=== PATIENT | male | born 1995 | race Caucasian/White ===

== ENCOUNTER 2017-08-31 18:59 | Emergency (ER) | payer MEDICARE, SELFPAY ==
[2017-08-31 19:14] VITALS: BP 138/89; PULSE 130; RESP 16; TEMP 36.6; O2SAT 100; BMI 18.3
--- NOTE | 2017-08-31 20:22 | CT_ITS ---
CT chest w con HISTORY: Abscess in the upper right side of the chest, pain, swelling, chest pain ITS.REASON: abscess to chest ORDERING PHYSICIAN: Earnest Epps MD PATIENT AGE: 22 years TECHNIQUE: Axial images obtained following the administration of 75 mL of Isovue 370 . Sagittal, and coronal reformatted images are also generated and reviewed. COMPARISON: None FINDINGS: No mediastinal or hilar mass or adenopathy. Normal heart size without evidence of pericardial effusion. No central pulmonary embolus or aortic aneurysm. There is a lobular 1.3 x 0.9 cm nodule in the right lower lobe superiorly. This appears to contain calcium on the reformatted images. A calcified 5 mm nodule present in the right lower lobe posteriorly. No lobar consolidation or collapse. No effusions or infiltrates. There is a 4 x 2.4 x 3 cm fluid collection in the right supraclavicular region. This is without an enhancing rim or internal gas measuring near water density. Unremarkable bony structures. No acute finding in the upper abdomen. 2.5 x 2.3 cm enlarged right axillary lymph node with smaller adjacent lymph nodes. IMPRESSION: 1. 4 cm oval fluid collection in the right supraclavicular region. No enhancing rim or internal gas that would indicate an abscess. Please correlate with clinical findings. 2. Enlarged right axillary lymph node. The node could be reactive. Neoplastic involvement however is not excluded and follow-up is recommended. 3. There are 2 right lower lobe nodules both of which contain calcium consistent with old granulomatous disease
[2017-08-31 20:36] LABS: Basophils % 0.4 % (0.1-2.0); Eosinophils # 0.1 K/mm3 (0.0-0.4); Eosinophils % 1.1 % (0.1-12.0); Hematocrit 41.4 % (42.0-52.0); Hemoglobin 13.5 g/dL (14.1-18.0); Lymphocytes # 1.7 K/mm3 (0.7-4.5); Lymphocytes % 16.8 K/mm3 (10-50); Mean Corpuscular HGB Conc 32.7 g/dL (31.8-35.4); Mean Corpuscular Hemoglobin 29.2 pg (27.0-31.2); Mean Corpuscular Volume 89.2 fl (80-94); Monocytes # 0.5 K/mm3 (0.1-1.0); Monocytes % 5.2 % (1.7-9.3); Neutrophils # 7.8 K/mm3 (1.8-7.8); Neutrophils % 76.6 % (37.0-80.0); Platelet Count 355 K/mm3 (142-424); Red Blood Count 4.64 M/mm3 (4.60-6.20); Red Cell Distribution Width 11.8 % (11.5-17.5); White Blood Count 10.1 K/mm3 (4.8-10.8)
[2017-08-31 20:52] LABS: Alanine Aminotransferase 20 U/L (12-78); Albumin Level 3.4 gm/dL (3.4-5.0); Albumin/Globulin Ratio 0.7 (1.1-1.8); Alkaline Phosphatase 78 U/L (46-116); Anion Gap 11.9 mEq/L (5-15); Aspartate Amino Transferase 10 U/L (15-37); Bilirubin,Total 0.2 mg/dL (0.2-1.0); Blood Urea Nitrogen 9 mg/dL (7-18); Calcium 9.1 mg/dL (8.5-10.1); Carbon Dioxide 27 mmol/L (21.0-32.0); Chloride 104 mmol/L (98-107); Creatinine Clearance Estimated 100 mL/min (0-300); Estimated Glomerular Filt Rate 93 ml/min (>60); GFR (African American) 113 ML/MIN (>60); Globulin 4.6 gm/dl (1.3-3.2); Glucose 79 mg/dL (74-106); Potassium 3.9 mmoL/L (3.5-5.1); Sodium 139 mmol/L (136-145)
[2017-08-31 21:18] LABS: Erythrocyte Sedimentation Rate 61 mm/hr (0-15)
--- NOTE | 2017-08-31 21:24 | HMH.EDSKAF ---
ED Disposition Clinical Impression: Abscess of skin or subcutaneous tissue Qualifiers: Site of cutaneous abscess: trunk Site of cutaneous abscess of trunk: chest wall Qualified Code(s): L02.213 - Cutaneous abscess of chest wall Disposition: Home, Self-Care Condition on Discharge: Good Instructions: DI for Skin Abscess Prescriptions: cephALEXin [Keflex 500mg Cap] 500 mg PO Q6H #30 cap Sulfamethoxazole/Trimethoprim [Bactrim DS tablet] 1 each PO BID #20 tab - Critical Care Critical Care Time: No Attestation: On 08/31/17, the high probability of a clinically significant, sudden or life threatening deterioration of the following system(s) required my full and direct attention, intervention and personal management. The time I documented below is in addition to time spent performing reported procedures but includes the following listed in this critical care notation. Medical Decision Making - Medical Records Medical records reviewed: Yes: I reviewed the patient's medical records. Vital Signs: 08/31/17 19:14 Temperature 97.9 F Temperature Source Oral Pulse Rate [Right Brachial] 130 H Respiratory Rate 16 Blood Pressure [Right Arm] 138/89 Blood Pressure Mean [Right Arm] 105 Blood Pressure Source [Right Arm] Automatic Cuff Blood Pressure Position [Right Arm] Sitting 02 Sat by Pulse Oximetry 100 Oxygen Delivery Method Room Air - Lab Data Lab results reviewed: Yes: I reviewed the patient's lab results. Lab Results 08/31/17 20:24: WBC 10.1, RBC 4.64, Hgb 13.5 L, Hct 41.4 L, MCV 89.2, MCH 29.2, MCHC 32.7, RDW 11.8, Plt Count 355, MPV 7.0 L, Neut % (Auto) 76.6, Lymph % (Auto) 16.8, [place] % (Auto) 5.2, Eos % (Auto) 1.1, Baso % (Auto) 0.4, Neut # (Auto) 7.8, Lymph # (Auto) 1.7, [place] # (Auto) 0.5, Eos # (Auto) 0.1, Baso # (Auto) 0.0, ESR 61 H 08/31/17 20:24: Sodium 139, Potassium 3.9, Chloride 104, Carbon Dioxide 27, Anion Gap 11.9, BUN 9, Creatinine 1.00, Estimated Creat Clear 100, Estimated GFR 93, Est GFR ( Amer) 113, Glucose 79, Calcium 9.1, Total Bilirubin 0.2, AST 10 L, ALT 20, Alkaline Phosphatase 78, Total Protein 8.0, Albumin 3.4, Globulin 4.6 H, Albumin/Globulin Ratio 0.7 L Result diagrams: 08/31/17 20:24 08/31/17 20:24 Orders (Tests/Meds): ORDERS Category Date Time Status CT chest w con Stat Cat Scan 08/31/17 20:22 Taken - CT Data CT Scan: Chest Time Received: 22:[address] Reviewed: Yes: I have viewed the radiologist's interpretation Preliminary Findings: Abnormal (see report) - Physician Consults Physician Consulted: alexys Reason -: Pt condition - Rashi Inquiry Pt receiving controlled substance: No Skin/Abscess/FB HPI - General Chief complaint: Skin/Abscess/Foreign Body Stated complaint: abscess on chest Time Seen by Provider: 08/31/17 21:25 Mode of Arrival: Ambulatory Source of Information: Patient, Relative Limitations: No Limitations Description of Symptoms (Recalled from ER Triage Doc. by RN): ABSCESS TO RIGHT SHOULDER - History of Present Illness HPI narrative: pt with rt ant chest pain with no fever or trauma and no drug use complaint: other Onset (ago): day(s) Tetanus up to date: unsure Location: chest Severity: moderate Treatments prior to arrival: none - Related Data Previous Rx's Medication Instructions Recorded Sulfamethoxazole/Trimethoprim 1 each PO BID #20 tab 08/31/17 [Bactrim DS tablet] cephALEXin [Keflex 500mg Cap] 500 mg PO Q6H #30 cap 08/31/17 Allergies Allergy/AdvReac Type Severity Reaction Status Date / Time No Known Allergies Allergy Verified 08/31/17 19:20 [facility] History I have reviewed the patient's past medical history: Yes - *Social History Smoking Status: Current every day smoker Tobacco Type: cigarettes Alcohol Intake: current Alcohol Intake Frequency:: a few times a month Substance Use Type: marijuana - Psychiatric History Expresses thoughts of harming self/others: None Suicide Plan Description: No Plan
== END 2017-08-31 22:16 | disposition home or self-care (01) ==
PROVIDERS: Emergency Medicine; Emergency Provider Emergency Medicine
DX: L02.213 Cutaneous abscess of chest wall (principal); F17.210 Nicotine dependence, cigarettes, uncomplicated
CPT/HCPCS: 71260; 80053; 85025; 85651; 99282; Q9967

== ENCOUNTER 2017-09-26 20:43 | Emergency (ER) | payer MEDICARE, SELFPAY ==
[2017-09-26 20:51] VITALS: BP 103/66; PULSE 96; RESP 16; TEMP 37.1; O2SAT 98; BMI 20.1
--- NOTE | 2017-09-26 21:34 | HMH.EDSKAF ---
ED Disposition Clinical Impression: Abscess of skin or subcutaneous tissue Qualifiers: Site of cutaneous abscess: other site Qualified Code(s): L02.818 - Cutaneous abscess of other sites Disposition: Home, Self-Care Condition on Discharge: Good Instructions: DI for Skin Abscess Additional Instructions: call surg for follow up - Critical Care Critical Care Time: No Attestation: On 09/26/17, the high probability of a clinically significant, sudden or life threatening deterioration of the following system(s) required my full and direct attention, intervention and personal management. The time I documented below is in addition to time spent performing reported procedures but includes the following listed in this critical care notation. Medical Decision Making - Medical Records Medical records reviewed: Yes: I reviewed the patient's medical records. Vital Signs: 09/26/17 20:51 Temperature 98.8 F Temperature Source Oral Pulse Rate [Left Radial] 96 H Respiratory Rate 16 Blood Pressure [Left Arm] 103/66 Blood Pressure Mean [Left Arm] 78 Blood Pressure Source [Left Arm] Automatic Cuff Blood Pressure Position [Left Arm] Supine 02 Sat by Pulse Oximetry 98 Oxygen Delivery Method Room Air - Lab Data Lab results reviewed: Yes: I reviewed the patient's lab results. - Rashi Inquiry Pt receiving controlled substance: No Skin/Abscess/FB HPI - General Chief complaint: Skin/Abscess/Foreign Body Stated complaint: Spot on chest Time Seen by Provider: 09/26/17 21:35 Mode of Arrival: Ambulatory Source of Information: Patient, Relative, Medical Record Limitations: No Limitations Description of Symptoms (Recalled from ER Triage Doc. by RN): 3 months of right clavicular swollen area - History of Present Illness HPI narrative: swollen 4x3 abscess rt clavicular area MD complaint: abscess/boil Onset (ago): month(s) Location: chest Severity: moderate - Related Data Allergies Allergy/AdvReac Type Severity Reaction Status Date / Time No Known Allergies Allergy Verified 08/31/17 19:20 [facility] History I have reviewed the patient's past medical history: Yes Medical History: Denies:: Cancer, Diabetes Mellitus Type 1, Diabetes Mellitus Type 2, MRSA Amputation: No Fractures: No - Social History Smoking Status: Current every day smoker Tobacco Type: cigarettes Alcohol Intake: current Alcohol Intake Frequency:: a few times a month Substance Use Type: marijuana - Psychiatric History Expresses thoughts of harming self/others: None Suicide Plan Description: No Plan ROS Obtained: Yes All systems reviewed & no additional complaints - Constitutional Constitutional: Denies chills - Eyes Eyes: Denies change in vision - ENT Ears, Nose, Mouth, and Throat: Denies sore throat - Cardiovascular Cardiovascular: Denies chest pain at rest - Respiratory Respiratory: No chest congestion, No cough - Gastrointestinal Gastrointestingal: Denies: abdominal pain - Genitourinary Male Genitourinary: Denies hematuria - Musculoskeletal Musculoskeletal: Denies joint pain - Integumentary/Breasts Skin/Breast: Reports boil - Neurologic Neurologic: Denies seizure-like activity Physical Exam - General General appearance: in no apparent distress - Head Head exam: normocephalic - Eye Eye exam: Present: PERRL, EOMI - ENT ENT exam: Present: mucous membranes moist - Neck Neck exam: Present: trachea midline - Respiratory Respiratory exam: Absent: respiratory distress - Cardiovascular Cardiovascular exam: Present: regular rate - Neurological Exam Neurological exam: Present: alert, oriented X3, CN II-XII intact - Psychiatric Psychiatric exam: Present: normal affect - Skin Skin exam: Present: other (3x4 cm rt ant chest abscess)
--- NOTE | 2017-09-26 21:38 | ED_ITS ---
ED Disposition Clinical Impression: Abscess of skin or subcutaneous tissue Qualifiers: Site of cutaneous abscess: other site Qualified Code(s): L02.818 - Cutaneous abscess of other sites Disposition: Home, Self-Care Condition on Discharge: Good Instructions: DI for Skin Abscess Additional Instructions: call surg for follow up - Critical Care Critical Care Time: No Attestation: On 09/26/17, the high probability of a clinically significant, sudden or life threatening deterioration of the following system(s) required my full and direct attention, intervention and personal management. The time I documented below is in addition to time spent performing reported procedures but includes the following listed in this critical care notation. Medical Decision Making - Medical Records Medical records reviewed: Yes: I reviewed the patient's medical records. Vital Signs: 09/26/17 20:51 Temperature 98.8 F Temperature Source Oral Pulse Rate [Left Radial] 96 H Respiratory Rate 16 Blood Pressure [Left Arm] 103/66 Blood Pressure Mean [Left Arm] 78 Blood Pressure Source [Left Arm] Automatic Cuff Blood Pressure Position [Left Arm] Supine 02 Sat by Pulse Oximetry 98 Oxygen Delivery Method Room Air - Lab Data Lab results reviewed: Yes: I reviewed the patient's lab results. - Rashi Inquiry Pt receiving controlled substance: No Skin/Abscess/FB HPI - General Chief complaint: Skin/Abscess/Foreign Body Stated complaint: Spot on chest Time Seen by Provider: 09/26/17 21:35 Mode of Arrival: Ambulatory Source of Information: Patient, Relative, Medical Record Limitations: No Limitations Description of Symptoms (Recalled from ER Triage Doc. by RN): 3 months of right clavicular swollen area - History of Present Illness HPI narrative: swollen 4x3 abscess rt clavicular area MD complaint: abscess/boil Onset (ago): month(s) Location: chest Severity: moderate - Related Data Allergies Allergy/AdvReac Type Severity Reaction Status Date / Time No Known Allergies Allergy Verified 08/31/17 19:20 [facility] History I have reviewed the patient's past medical history: Yes Medical History: Denies:: Cancer, Diabetes Mellitus Type 1, Diabetes Mellitus Type 2, MRSA Amputation: No Fractures: No - Social History Smoking Status: Current every day smoker Tobacco Type: cigarettes Alcohol Intake: current Alcohol Intake Frequency:: a few times a month Substance Use Type: marijuana - Psychiatric History Expresses thoughts of harming self/others: None Suicide Plan Description: No Plan ROS Obtained: Yes All systems reviewed & no additional complaints - Constitutional Constitutional: Denies chills - Eyes Eyes: Denies change in vision - ENT Ears, Nose, Mouth, and Throat: Denies sore throat - Cardiovascular Cardiovascular: Denies chest pain at rest - Respiratory Respiratory: No chest congestion, No cough - Gastrointestinal Gastrointestingal: Denies: abdominal pain - Genitourinary Male Genitourinary: Denies hematuria - Musculoskeletal Musculoskeletal: Denies joint pain - Integumentary/Breasts Skin/Breast: Reports boil - Neurologic Neurologic: Denies seizure-like activity Physical Exam - General General appearance: in no apparent distress - Head Hea
[2017-09-26 21:51] VITALS: BP 128/74; PULSE 80; RESP 16; TEMP 37.1; O2SAT 99
== END 2017-09-26 21:53 | disposition home or self-care (01) ==
PROVIDERS: Emergency Provider Emergency Medicine
DX: L02.413 Cutaneous abscess of right upper limb (principal); F17.210 Nicotine dependence, cigarettes, uncomplicated
CPT/HCPCS: 99281